=== PATIENT | male | born 1995 | race Caucasian/White ===

== ENCOUNTER 2018-05-27 13:18 | Inpatient (IN) | payer BC, OTHER ==
[~2018-05-27] VITALS: Ht 193 cm; Wt 108.9 kg
[~2018-05-27 13:18] MED LIST: DULO60CA63 PO; IBUP100O19 PO
[2018-05-27] MEDS ORDERED: MAG HYDROX/AL HYDROX/SIMETH 30 ML LIQUID UDC PO PRN (15:45)
[2018-05-27] MEDS ORDERED: BUPRENORPHINE HCL 2 MG TAB.SUBL SL PRN (15:45)
[2018-05-27] MEDS ORDERED: ONDANSETRON ODT 4 MG TAB.RAPDIS SL PRN (15:45)
[2018-05-27] MEDS ORDERED: ACETAMINOPHEN 325 MG TABLET PO PRN (15:45)
[2018-05-27] MEDS ORDERED: diphenhydrAMINE 50 MG CAPSULE PO PRN (15:45)
[2018-05-27] MEDS ORDERED: DICYCLOMINE HCL 20 MG TABLET PO PRN (15:45)
[2018-05-27] MEDS ORDERED: METHOCARBAMOL 750 MG TABLET PO PRN (15:45)
[2018-05-27] MEDS ORDERED: ONDANSETRON 4 MG/2 ML VIAL IM PRN (15:45)
[2018-05-27] MEDS ORDERED: HYDROXYZINE PAMOATE 25 MG CAPSULE PO PRN (15:45)
[2018-05-27] MEDS ORDERED: MAGNESIUM HYDROXIDE 30 ML LIQUID UDC PO PRN (15:45)
[2018-05-27] MEDS ORDERED: 3 DAY TAPER BUPRENORPHINE -SERENITY PROTOCOL SL PRN (15:45)
[2018-05-27] MEDS ORDERED: LOPERAMIDE HCL 2 MG CAPSULE PO PRN ×2 (15:45)
[2018-05-27 16:16] LABS: BASOPHILS # (AUTO) 0.1 K/uL (0.0-8.0); BASOPHILS % (AUTO) 0.8 % (0.0-2.0); EOSINOPHILS % (AUTO) 0.4 % (0.0-7.0); HEMATOCRIT 49.7 % (36.7-47.1); HEMOGLOBIN 16.8 g/dL (12.5-16.3); LYMPHOCYTES # (AUTO) 3.2 K/uL (20.0-40.0); LYMPHOCYTES % (AUTO) 31.1 % (20.5-51.5); MEAN CORPUSCULAR HEMOGLOBIN 28.7 uug (23.8-33.4); MEAN CORPUSCULAR HGB CONC 34 g/dL (32.5-36.3); MEAN CORPUSCULAR VOLUME 84.8 fL (73.0-96.2); MONOCYTES % (AUTO) 9.2 % (0.0-11.0); NEUTROPHILS # (AUTO) 6.1 K/uL (1.8-8.9); NEUTROPHILS % (AUTO) 58.5 % (38.5-71.5); PLATELET COUNT (AUTO) 265 K/uL (152-348); RED BLOOD CELL COUNT(AUTO) 5.86 MIL/uL (4.06-5.63); WHITE BLOOD COUNT (AUTO) 10.4 K/uL (3.6-10.2)
[2018-05-27 16:33] LABS: BILIRUBIN,TOTAL 0.6 mg/dL (0.2-1.0); CREATININE 1.2 mg/dL (0.6-1.3); MAGNESIUM 1.9 mg/dL (1.8-2.4); POTASSIUM 3.5 mmol/L (3.5-5.1); TOTAL PROTEIN, SERUM 8.7 g/dL (6.4-8.2)
--- NOTE | 2018-05-27 16:35 | NUR ---
PRE ASSESSMENT 22 year old male in intake with flushed complexion.His skin is moist. He presents fidgety and he has mouth twisting movements and states he is very high on Crystal Methamphetamine and used 1/2 Gram at 10 am and has been using Meth for a week. He also reports using Suboxone 8 mg SL for 1 year and last used Saturday05/25/18. BP 122/77 P 120 R 18 O2 Sat 99% Allergic to cats. No Seizure hx.
[2018-05-27 16:49] LABS: THYROID STIMULATING HORMONE 4.539 mIU/mL (0.358-3.740)
[2018-05-27] MEDS: LORAZEPAM 1 MG TABLET PO PRN ×2 (16:56→20:16)
[2018-05-27 17:21] LABS: *AMPHETAMINE, URINE POSITIVE (NEGATIVE); *BARBITURATE, URINE NEGATIVE (NEGATIVE); *CANNABINOID, URINE NEGATIVE (NEGATIVE); *COCCAINE, URINE NEGATIVE (NEGATIVE); *OPIATE, URINE NEGATIVE (NEGATIVE); *PHENCYCLIDINE SCREEN,URINE NEGATIVE (NEGATIVE)
--- NOTE | 2018-05-27 17:35 | NUR ---
ADMISSION: A 22 year old male admitted for medically supervised withdrawal from opiates (Suboxone). He reports allergy to cats. He presents with anxious mood and congruent affect.He is fidgety with flushed complexion and twisting mouth movements. He denies S/I and H/I He appears very high and states he used 1/2 gram of Methamphetamine IV at 10am this morning and is indeed very "gakked up" on speed. Admission BP 123/71 P 160 R 18 O2sat 99% T 98.8 COWS 9 He states he is so high on Meth it is hard to know what his opiate s/s of w/d are at this time. EKG ordered for tachycardia per MD. Sinus Tachycardia noted. P 133 on EKG. He denies a PCP. He denies seizure Hx. SUBSTANCE USE: He reports using Suboxone 8 mg SL for 1 year and last used Saturday05/25/18. He is very high on Crystal Methamphetamine and used 1/2 Gram of Meth at 10 am and has been using it for a week. He has been using Suboxone daily throughout treatment and sober living. He was here at [facility] in 2016 and has been at [facility] and [facility] in [place] on Suboxone maintenance through MD at [facility]. He states he does not want to live like this anymore and feels like he is a a slave to Suboxone and cannot stop on his own. He states he has terrible s/s of w/d when he tries to stop on his own and needs help. He reports he experiences chills,sweats,body aches, irritability and fatigue and cannot stop using on his own. He states he has had 2 overdoses in one year but unsure of dates and states he was hospitalized both times. He confessed about his use to [facility] and they assisted him to come here.He reports loss of jobs,poor choices,Hep C and time in retirement as some of the negative consequences of his use. MEDICAL HISTORY: He reports HCV diagnosed 2 years ago. He reports anxiety and depression. He denies Psychiatric holds or hospitalizations for mental illness. He denies home medications and brought none to facility. Contreras is vague about his treatment history but reports he has tried to stop using about 10 times. he has been to [facility] and [facility] but dates are unclear. He states his motivation for getting clean is " I don't want to live like this anymore,I am a slave to drugs and I hate it". He states he wants good health and good relationships in his life. Oriented Pt to staff and unit. Assured him that nursing staff is here 25/02. Will provide safe and supportive environment.
--- NOTE | 2018-05-27 19:15 | NUR ---
END OF SHIFT: A newly admitted 22 yo male. His pulse was 160 and EKG done showing Sinus Tachycardia.Ativan PRN given for anxiety and agitation. Pt states Ativan was effective and he ate 100% of meal.Subutex taper to start tonight Will pass shift report to [facility] night nurse. Addendum: 05/27/18 at 1934 by KRISTIAN GRAHAM RN Pulse was 133 on EKG
--- NOTE | 2018-05-27 19:30 | NUR ---
START OF SHIFT Received 22 year old male patient admitted on 05/27/18 for opiate withdrawal. Pt is alert and oriented x4. Pt noted with anxiety, agitation, irritability, and flushed face. Pt states Im still anxious but I feel like Im coming down now. He is scheduled to start a 3 day Subtuex taper and will receive his first dose tonight. Per endorsement, he received an EKG today for increased HR. Results showed sinus tachycardia. Per endorsement, he received PRN Ativan. Last COWS:9 at 1600. Breathing is even and unlabored, safety measures in place. Will continue to monitor.
[2018-05-27 20:00] VITALS: BP 114/84
--- NOTE | 2018-05-27 20:00 | NUR ---
COWS Pt complains of anxiety, agitation, irritability, sweats and flushed face. COWS:12 prior to 2100 medication administration. Will continue to monitor.
[2018-05-27] MEDS: CLONIDINE HCL 0.1 MG TABLET PO PRN (20:16)
--- NOTE | 2018-05-27 20:16 | NUR ---
PRN ATIVAN/CLONIDINE Pt complains of increased anxiety, agitation, irritability, and sweats. PRN Ativan and Clonidine administered as ordered. Safety measures in place. Will monitor effectiveness.
[2018-05-27] MEDS ORDERED: QUET100T PO (20:24)
[2018-05-27] MEDS ORDERED: BUPRENORPHINE HCL 2 MG TAB.SUBL SL SCH (21:00)
--- NOTE | 2018-05-27 21:16 | NUR ---
PRN ATIVAN/CLONIDINE REASSESSMENT PRN medications effective. Pt appears to be more calm, and less restless. Pt reports medications helped to decrease anxiety/agitation. Breathing even and unlabored, will continue to monitor.
[2018-05-27 23:17] VITALS: BP 128/83
[2018-05-27] MEDS: QUETIAPINE FUMARATE 100 MG TABLET PO PRN (23:17)
--- NOTE | 2018-05-27 23:17 | NUR ---
NIKHIL Pt noted to be anxious, agitated, but reports medications have been helping with his withdrawal symptoms of sweats and flushed face. NIKHIL:9. Will monitor.
--- NOTE | 2018-05-27 23:17 | NUR ---
PRN SEROQUEL Pt complains of insomnia. PRN Seroquel administered as ordered. Will monitor effectiveness.
--- NOTE | 2018-05-28 00:17 | NUR ---
PRN SEROQUEL REASSESSMENT PRN medication ineffective. Pt is awake, reports he feels drowsy but unable to fall asleep. He states " It's cause I used this morning." Will continue to monitor.
[2018-05-28] MEDS: LORAZEPAM 1 MG TABLET PO PRN ×3 (00:59→05:24)
[2018-05-28] MEDS: IBUPROFEN 600 MG TABLET PO PRN (01:04)
--- NOTE | 2018-05-28 01:07 | NUR ---
PRN ATIVAN, BENTYL, IBUPROFEN Pt complains of increased agitation, abdominal cramps and generalized pain. PRN Ativan, Bentyl and Ibuprofen administered as ordered. Will monitor effectiveness.
--- NOTE | 2018-05-28 02:07 | NUR ---
PRN ATIVAN, BENTYL, IBUPROFEN REASSESSMENT PRN Ativan ineffective. Pt still noted with increased anxiety, agitation and presents with visual hallucinations. PRN Bentyl and Ibuprofen effective. Pt reports decrease in abdominal cramps and generalized pain. Will monitor.
--- NOTE | 2018-05-28 02:24 | NUR ---
BEHAVIOR NOTE Pt noted with visual hallucinations. Pt was speaking with ACID CONDITIONING WORKER, walked into room 322 and stated " did you see that? she's in there with her legs wide open. How can she do that?" Pt was reoriented back to reality. Pt verbalized understanding. Encouraged pt to lay down and try to get some sleep. Will continue to monitor.
[2018-05-28] MEDS: CLONIDINE HCL 0.1 MG TABLET PO PRN ×2 (02:58→20:17)
--- NOTE | 2018-05-28 02:58 | NUR ---
PRN SUBUTEX, CLONIDINE, ATIVAN, VISTARIL Pt noted with increased anxiety, agitation, restlessness, suspicious behavior, visual hallucinations, red tearful watery eyes, sweats,clammy skin and increased BP. Pt is disheveled with dark circles around eyes. Room is messy with garbage around room. COWS:18. PRN Subutex, Clonidine, Ativan and Vistaril administered as ordered. Safety measures in place. Will continue to monitor.
--- NOTE | 2018-05-28 03:58 | NUR ---
PRN SUBUTEX, CLONIDINE, ATIVAN, VISTARIL REASSESSMENT PRN medications effective. Pt appears more calm and is able to sit still in bed. Pt is less anxious and tearful. BP decreased to 96/72. Safety measures in place. Will continue to monitor.
[2018-05-28 04:00] VITALS: BP 96/72
--- NOTE | 2018-05-28 04:02 | NUR ---
COWS Pt noted with anxiety, restlessness, decreased sweats and decreased visual hallucinations. Pt is able to be redirected and is alert to person, place, and situation. COWS:11. Will continue to monitor.
[2018-05-28 05:07] LABS: HEPATITIS B SURFACE AG Negative (Negative)
--- NOTE | 2018-05-28 05:24 | NUR ---
PRN ATIVAN Pt noted with increased agitation, restlessness, and irritability. Pt unable to sit still in bed and is fidgety. PRN Ativan administered as ordered. Will monitor effectiveness.
--- NOTE | 2018-05-28 06:24 | NUR ---
PRN ATIVAN REASSESSMENT PRN Ativan effective. Pt noted to be more calm, less anxious, agitated and restless. Pt with 1:1 sitter for safety. Will continue to monitor.
--- NOTE | 2018-05-28 07:13 | NUR ---
END OF SHIFT Pt is a 22 year old male patient admitted on 05/27/18 for opiate withdrawal. Pt is alert and oriented x2. He was noted with anxiety, agitation, irritability, visual hallucinations, sweats, restlessness, increased BP, and flushed face during the shift. He is receiving a 3 day Subutex taper and tolerating well. He received several PRN medications of Ativan, total of 8 mg. Subutex, Clonidine, and Vistaril. He was placed on a 1:1 for safety. He slept for 1 hr, Intake: 1728mL, Void:x1, BM:0, Last COWS:11 at 0400. Breathing is even and unlabored, safety measures in place. Endorsed to AM shift.
[2018-05-28] MEDS ORDERED: LORAZEPAM 2 MG/1 ML VIAL IM ONE ×2 (07:30→08:45)
--- NOTE | 2018-05-28 07:40 | NUR ---
START OF SHIFT: Received Pt pacing around room making grunting and groaning noises. Profuse sweating around head and neck area noted. His eyes are bloodshot. Pt was up all night hallucinating per operation shift supervisor nurse report. He is telling me people are vide taping him and they're outside his window. Reoriented PT to reality. He is A/O X4 . He reports visual hallucinations,unable to stand or sit still for v/s. He has involuntary mouth twisting movements.He is verbalizing nonsensical. Pt is with a tangential thought process,flight of ideas and hyperverbal.Will give Ativan 2mg Im and Seroquel 100 mg PO per MD to manage symptoms. Will monitor effectiveness.
--- NOTE | 2018-05-28 07:41 | NUR ---
MD and Psychiatric Communication: Pt noted with increased confusion, anxiety and agitation. MD made aware with new order for 2mg IM Ativan ONCE. Psychiatrist made aware. With new order for 100mg Seroquel Q4HPRN for anxiety/agitation. Orders noted and carried out.
[2018-05-28] MEDS ORDERED: QUETIAPINE FUMARATE 100 MG TABLET PO PRN (07:45)
--- NOTE | 2018-05-28 08:10 | NUR ---
Psychiatrist Communication: Psychiatrist with new order to change schedule of 100mg Seroquel PO Q4HPRN to QID. Order noted and carried out
--- NOTE | 2018-05-28 08:15 | NUR ---
COWS deferred . Unable to assess COWS at this time
--- NOTE | 2018-05-28 08:40 | NUR ---
PROGRAM ANALYST changed sheets and made up bed for Pt. He laid down and fell asleep. Respirations even and unlabored. Side rails x 2. 1:1 sitter at bedside. Meds held. Will allow Pt to sleep as he has been awake for more then 3 days on Crystal Meth. Will continue to provide safe and supportive environment.
[2018-05-28] MEDS ORDERED: diphenhydrAMINE 50 MG/1 ML VIAL IM ONE (08:45)
[2018-05-28] MEDS ORDERED: OLANZAPINE 10 MG VIAL IM ONE (08:45)
[2018-05-28] MEDS: MULTIVITAMINS,THERAPEUTIC TABLET PO SCH (09:00)
[2018-05-28] MEDS: BUPRENORPHINE HCL 2 MG TAB.SUBL SL SCH ×3 (09:00→20:17)
[2018-05-28] MEDS ORDERED: TUBERCULIN,PURIF.PROT.DERIV. 5 TU/0.1 ML TEST ID ONE (09:00)
[2018-05-28] MEDS: DULOXETINE 60 MG CAPSULE.DR PO SCH (09:00)
[2018-05-28 12:00] VITALS: BP 127/79
[2018-05-28] MEDS ORDERED: QUETIAPINE FUMARATE 100 MG TABLET PO SCH (13:00)
--- NOTE | 2018-05-28 13:35 | NUR ---
Pt awoke A/O X 4 and is agitated ,fidgety,restlessness and continues hyperverbal and nonsensical. he is less diaphoretic. He is severely agitated and presents anxious. Will administer IM Ativan 2 mg PRN and Seroquel 100mg PO PRN.
[2018-05-28] MEDS: QUETIAPINE FUMARATE 100 MG TABLET PO PRN ×2 (13:58→20:17)
[2018-05-28] MEDS: LORAZEPAM 2 MG/1 ML VIAL IM PRN ×2 (13:59→21:42)
--- NOTE | 2018-05-28 14:35 | NUR ---
Seroquel and Ativan only mildly effective. Pt continues to be severely anxious and restless.
--- NOTE | 2018-05-28 15:10 | NUR ---
Pt continues to be restless and fidgety. COWS 10 Subutex administered as ordered. Will continue to monitor. 1:1 continues for safety. Addendum: 05/28/18 at 1733 by KRISTIAN GRAHAM RN CORRECTION COWS 18
[2018-05-28 16:00] VITALS: BP 132/82
--- NOTE | 2018-05-28 18:59 | NUR ---
END OF SHIFT: Pt continues on Subutex taper to manage s/s of w/d which include body aches,sweats and anxiety COWS 18. 1:1 sitter for safety continues. He denies hallucinations at this time. He does report that he still feels "tweeked " from the Meth but states it is much better then earlier in shift.He continues to be restless and fidgety. PRN Ativan 2 mg IM given X 2 and Seroquel 100 mg PO PRN given X 2 and mildly effective. He slept about 4 hours today after being awake for more then 3 days he reports. He is eating and increasing fluid intake as encouraged. [facility]
--- NOTE | 2018-05-28 19:30 | NUR ---
Start of shift Patient is a 22 year old male, admitted on 05/27/2018. Patient is here at [facility] for Opiate withdrawal. Patient is on a Subutex taper. Patient is on a one to one for safety and on fall precautions. Patients last COWS is 18 and had PRN Seroquel and Ativan. Per endorsement patient was experiencing meth psychosis and has been pacing on the [address] during the day. Upon rounds patient was noted in room and he was very anxious, restless legs, agitated, diaphoretic, and disheveled. Reviewed 2100 medications with patient and he verbalized understanding. Safety measures in please, bed lock in low position, side rails up x2, and call light within reach. Will continue to monitor.
[2018-05-28 20:00] VITALS: BP 130/83
--- NOTE | 2018-05-28 20:00 | NUR ---
COWS Assessment Patient is presenting with s/s of withdrawal as follow: very anxious, restless legs, agitated, diaphoretic, and disheveled. Patients COWS is 17. Patient is breathing even and unlabored and no s/s of distress. Safety measures in please, bed lock in low position, side rails up x2, and call light within reach. Will continue to monitor.
--- NOTE | 2018-05-28 20:17 | NUR ---
PRN Seroquel, and Clonidine Patient was experiencing difficulty falling asleep and was very agitated with some restlessness. Administered PRN Seroquel and Clonidine and patient tolerated well. Will monitor patient for any s/s of adverse effects. Safety measures in place, will continue to monitor.
--- NOTE | 2018-05-28 21:17 | NUR ---
PRN Seroquel, and Clonidine Reassessment Patient is still experiencing restlessness along with body aches. Patient is pacing in room and is moaning. Will continue to monitor for further interventions. Safety measures in place, will continue to monitor.
--- NOTE | 2018-05-28 21:42 | NUR ---
PRN Ativan IM Patient was very agitated and anxious. Administered PRN Ativan IM in the left deltoid. Patient tolerated well. Safety measures in place will continue to monitor.
--- NOTE | 2018-05-28 22:42 | NUR ---
PRN Ativan IM Reassessment Patient is noted in bed resting with eyes closes, breathing is even and unlabored. Medication was noted to be successful. Safety measures in place, will continue to monitor.
[2018-05-29] VITALS: BP 118/76
--- NOTE | 2018-05-29 | NUR ---
COWS Deferred Patient was noted in bed resting with eyes closed, breathing even and unlabored. Per protocol COWS is to be assessed while patient is awake. Safety measures in please, bed lock in low position, side rails up x2, and call light within reach. Will continue to monitor.
[2018-05-29 04:00] VITALS: BP 106/78
[2018-05-29] MEDS: QUETIAPINE FUMARATE 100 MG TABLET PO PRN ×2 (05:20→21:47)
--- NOTE | 2018-05-29 06:52 | NUR ---
End of shift Patient is a 22 year old male, admitted on 05/27/2018. Patient is here at [facility] for Opiate withdrawal. Patient is on a Subutex taper. Patient is on a one to one for safety and on fall precautions. Patients last COWS is 17. Patient had PRN Seroquel, Ativan and Clonidine during this shift. Patient slept for 5 hours and had a total intake of 755 ml. Patient voided x2 and had no bowel movements during this shift. Safety measures in please, bed lock in low position, side rails up x2, and call light within reach. Will endorse to day shift.
--- NOTE | 2018-05-29 07:40 | NUR ---
START OF SHIFT Endorse rcvd from ongoing nurse, client is in room, he is in a position, sounds asleep, easy to arouse. RR 16, even, non-labored. Client is on 1:1 sitter promoting safety. Last COWS 17 @ 0400. Client is on last of 3 day Subutex taper. PRN Ativan 1mg IM for CIWA 19, Seroquel 25mg PO x 2, Clonidine 0.1mg PO for agitation, anxiety. Client slept 5 hrs. Side rails x 2 up. [place] precautions. Call light within reach. Will continue to monitor.
[2018-05-29 08:18] VITALS: BP 105/69
[2018-05-29] MEDS ORDERED: BUPRENORPHINE HCL 2 MG TAB.SUBL SL SCH (09:00)
--- NOTE | 2018-05-29 09:58 | NUR ---
COWS 15 Client presents with auditory disturbances, disorientation, restlessness, agitation, irritability, anxiety, poor appetite, chills, clammy Skin, depression, difficulty concentrating, emotional volatility, fatigue, fine tremors, and flushed facial skin. Schedule Subutex 2mg SL administered. Call light within reach.
[2018-05-29] MEDS: MULTIVITAMINS,THERAPEUTIC TABLET PO SCH (09:59)
[2018-05-29] MEDS: IBUPROFEN 600 MG TABLET PO PRN (09:59)
[2018-05-29] MEDS: DULOXETINE 60 MG CAPSULE.DR PO SCH (09:59)
--- NOTE | 2018-05-29 12:30 | NUR ---
CIWA 14 Client presents with agitation, irritability, anxiety, disorientation, restlessness, poor appetite, chills, clammy Skin, depression, difficulty concentrating, emotional volatility, fatigue, fine tremors, and flushed facial skin. Non-pharmacological measures rendered. Call light within reach.
[2018-05-29 12:55] VITALS: BP 103/67
--- NOTE | 2018-05-29 14:32 | NUR ---
Therapist prompted client to attend group therapy sessions.
--- NOTE | 2018-05-29 16:30 | NUR ---
CIWA 14 Client presents with agitation, irritability, anxiety, restlessness, poor appetite, chills, clammy skin, depression, difficulty concentrating, emotional volatility, fatigue, fine tremors, and flushed facial skin. Non-pharmacological measures rendered. Call light within reach.
[2018-05-29 16:55] VITALS: BP 106/67
--- NOTE | 2018-05-29 19:04 | NUR ---
END OF SHIFT Endorse client to incoming nurse, client is in room, a/o x 4, client continues to present with with agitation, irritability, anxiety, disorientation, restlessness, poor appetite, chills, clammy Skin, depression, difficulty concentrating, emotional volatility, fatigue, fine tremors, and flushed facial skin. Last COWS 14 @ 1630. Client is on last of 3 day Subutex taper. Client is compliant with 1/3 of group therapy. Consumes 50-75% of his meals. Adequate PO fluid intake 1775mL, void x 2. Call light within reach.
--- NOTE | 2018-05-29 19:30 | NUR ---
START OF SHIFT Patient received awake, alert, and oriented. Per endorsement, no auditory or visual hallucinations noted today. 1 to 1 for aud/visual hallucinations were discontinued today at 1600. Last COWS was 14. No PRNs given during AM shift and it was reported that patient slept a lot during the day. Upon assessment, there were no complaints of pain, auditory hallucinations, or visual hallucinations. When asked, he stated that his hallucinations were induced by methamphetamine intoxication. Patient requests to have his sleep medication. Will continue to monitor.
--- NOTE | 2018-05-29 20:00 | NUR ---
COWS ASSESSMENT Patient continues to be monitored for Opiate withdrawal. He was noted with chills, sweats, anxiety, irritability, yawning, headaches, and insomnia. His COWS score is 13. Medications administered as per order. Will continue to monitor.
[2018-05-29 20:30] VITALS: BP 131/75
--- NOTE | 2018-05-29 21:50 | NUR ---
PRN MEDICATION ADMINISTRATION Patient noted with inability to sleep and restlessness. PRN Seroquel 100 mg given as ordered. Will reassess effectiveness in an hour.
--- NOTE | 2018-05-29 22:50 | NUR ---
PRN MEDICATION REASSESSMENT Patient noted lying in bed with eyes closed and respirations even and unlabored. No signs and symptoms of restlessness noted. PRN medication effective. Will continue to monitor.
--- NOTE | 2018-05-30 00:32 | NUR ---
COWS and VITALS DEFERRED Patient was noted lying in bed with even and unlabored respirations. Vitals and COWS assessment refused. Patient remains in stable condition. Will continue to monitor.
--- NOTE | 2018-05-30 07:15 | NUR ---
END OF SHIFT Patient is noted lying in bed with eyes closed and respirations even and unlabored. He is at the end of his 3 day Subutext taper. He is noted with chills, sweats, anxiety, irritability, yawning, body aches, and insomnia. Patient received 100 mg Seroquel PRN for inability to fall asleep with medication noted to be effective. Patient noted to sleep 5 hours. Last noted COWS is 13. Endorsed to oncoming AM nurse.
--- NOTE | 2018-05-30 07:30 | NUR ---
START OF SHIFT Endorse rcvd from ongoing nurse, client is in room, lying on his L side, he sounds asleep, easy to arouse. RR 16, even, non-labored. Last COWS 13 @ 2100. Client completed 3 day Subutex taper. PRN Seroquel 100mg for insomnia. Client slept 5 hrs. Side rails x 2 up. [place] precautions. Call light within reach. Will continue to monitor.
[2018-05-30 08:39] VITALS: BP 102/60
[2018-05-30] MEDS: DULOXETINE 60 MG CAPSULE.DR PO SCH (08:41)
[2018-05-30] MEDS: MULTIVITAMINS,THERAPEUTIC TABLET PO SCH (08:41)
--- NOTE | 2018-05-30 08:43 | NUR ---
COWS 4 Client is in room, a/o x 4, he reports anxiety and agitation. He presents with depressed mood, flat affect. Cymbalta 120mg PO administered. Encourage client to attend group therapy to learn skills to maintain sober. Call light within reach.
[2018-05-30 12:55] VITALS: BP 138/88
--- NOTE | 2018-05-30 13:00 | NUR ---
COWS 5 Client presents with anxious mood, flat affect, yawning, and difficulty concentrating. Non-pharmacologic measures rendered. Call light within reach.
--- NOTE | 2018-05-30 13:08 | NUR ---
Therapist prompted client to attend group therapy.
[2018-05-30] MEDS ORDERED: DULO60CA63 PO (13:56)
[2018-05-30] MEDS ORDERED: QUET100T PO (13:56)
[2018-05-30 16:50] VITALS: BP 132/78
--- NOTE | 2018-05-30 16:50 | NUR ---
COWS 4 Client reports anxiety and agitation. Non-pharmacologic measures rendered. Will continue to monitor. Call light within reach.
--- NOTE | 2018-05-30 19:00 | NUR ---
END OF SHIFT Endorse client to incoming nurse, client is in room, a/o x 4, client continues to present with with agitation, anxiety, and difficulty concentrating. Last COWS 4 @ 1650. Client completed 3 day Subutex taper, he is schedule for discharge tomorrow am to [facility] for continuity of care. Client is compliant with group therapy. Consumes 75% of meals. Adequate PO fluid intake 1700mL, void x 6, stool x 2. Call light within reach.
--- NOTE | 2018-05-30 19:30 | NUR ---
Start of Shift Patient Received. Per endorsement, patient has completed a modified 3 day Subutex taper. Patient is set for discharge tomorrow 05/31/18 to [facility]. Patient was noted to be proactive in care by participating in group and social activities, showering, and displaying positive coping skills. No PRN medications administered. Last noted COWS 4. Upon rounds, patient is noted in his room, awake, alert and verbally responsive. Able to discuss with patient that taper medications have been effective for patient in minimizing signs and symptoms of withdrawal. Patient is requesting sleep medication at a later time and states I just always have difficulty with sleeping despite me falling asleep on my own. I dont feel rested. All needs attended to promptly. Will continue plan of care as ordered.
[2018-05-30 20:38] VITALS: BP 130/68
[2018-05-30] MEDS: QUETIAPINE FUMARATE 100 MG TABLET PO PRN (20:40)
--- NOTE | 2018-05-30 20:42 | NUR ---
PRN Medication Administration Patient is noted verbalizing inability of falling asleep and staying asleep. PRN Seroquel 100mg administered. Will continue to monitor.
--- NOTE | 2018-05-30 21:45 | NUR ---
PRN Medication Reassessment Patient is noted in bed with eyes closed. Breathing even and non labored. No signs of restlessness or discomfort noted. PRN Seroquel noted to be effective. Will continue to monitor.
--- NOTE | 2018-05-31 00:30 | NUR ---
Vitals and COWS Assessment patient is noted in bed with eyes closed. Breathing even and non labored. patient noted to refuse vitals. COWS not able to be completed as per order. No restlessness or facial grimacing noted. Will continue to monitor.
--- NOTE | 2018-05-31 04:15 | NUR ---
Vitals and COWS Patient is noted in bed with eyes closed. breathing even and non labored. No signs of restlessness or facial grimacing noted. Vitals refused. COWS not able to be completed as per order. Will continue to monitor.
--- NOTE | 2018-05-31 06:55 | NUR ---
End of Shift Patient is in bed with eyes closed. Breathing even and non labored. Patient has completed a modified Subutex taper and is set for discharge today 05/31/18 to [facility]. Patient received PRN Seroquel for inability of falling asleep with medication noted to be effective. Last noted COWS 5. Patient noted to sleep a total of 9 hours. All needs attended to promptly. Will continue plan of care as ordered.
--- NOTE | 2018-05-31 07:28 | NUR ---
Start of shift note; Received report from night nurse. Patient is a 22 year old male admitted on 05/27/18 for Opiate withdrawals. Patient completed a 3 day Subutex taper, no adverse reactions noted. Patient is medically cleared for discharge per MD and to be transferred to [facility]. Patient received PRN Seroquel. Patient slept for 9.5 hours. Last COWS was 5 per endorsement. Patient is AOX4, presented with anxiety, intermittent sweats complaining of muscle aches. All safety measures secured. Will continue to monitor patient.
[2018-05-31 08:00] VITALS: BP 127/74
[2018-05-31] MEDS: DULOXETINE 60 MG CAPSULE.DR PO SCH (08:31)
[2018-05-31] MEDS: MULTIVITAMINS,THERAPEUTIC TABLET PO SCH (08:31)
--- NOTE | 2018-05-31 09:40 | NUR ---
Discharge note; Patient is AOx4, Patient is medically cleared for discharge per MD to be transferred to [facility]. Patient completed treatment without any adverse reactions. Patient denies s/i or h/i Patient was escorted out of the facility by C[employer]ER [employer]SULT[employer]. Patient left at exactly 0940 on 05/31/18 accompanied by [employer]. Met all needs.
== END 2018-05-31 09:40 | disposition home or self-care (01) | DRG 895 ==
LOC: SRC 15:25
PROVIDERS: ADMIT Family Medicine Addiction Medicine; ATTEND Family Medicine Addiction Medicine
PROC: HZ2ZZZZ Detoxification Services for Substance Abuse Treatment (ICD-10-PCS; principal; 2018-05-27)
PROC: HZ31ZZZ Individual Counseling for Substance Abuse Treatment, Behavioral (ICD-10-PCS; 2018-05-30)
PROC: HZ41ZZZ Group Counseling for Substance Abuse Treatment, Behavioral (ICD-10-PCS; 2018-05-30)
DX: F11.23 Opioid dependence with withdrawal (principal); F17.210 Nicotine dependence, cigarettes, uncomplicated; B19.20 Unspecified viral hepatitis C without hepatic coma; F41.1 Generalized anxiety disorder; F31.9 Bipolar disorder, unspecified; F15.23 Other stimulant dependence with withdrawal; F15.251 Other stimulant dependence with stimulant-induced psychotic disorder with hallucinations; R73.9 Hyperglycemia, unspecified; R71.8 Other abnormality of red blood cells; R74.0 Nonspecific elevation of levels of transaminase and lactic acid dehydrogenase [LDH]
CPT/HCPCS: 36415; 80307; 80324; 83735; 84443; 85025; 86592; 86705; 86803; 87340; 87806; 93005; A4663; G0480; J2060